=== PATIENT | male | born 2000 | race Caucasian/White ===

== ENCOUNTER 2021-10-06 13:17 | Emergency (ER) | payer BC ==
[~2021-10-06] VITALS: Ht 180.3 cm; Wt 68.2 kg
[2021-10-06 13:39] VITALS: TEMP 98.5
[2021-10-06 14:31] LABS: BASO % 0.1 % (0.0-2.0); EOS # 0.1 K/mm3 (0.0-0.7); EOS % 0.7 % (0.0-4.0); GRAN # 5.9 K/mm3 (1.4-6.5); GRAN % 76.5 % (42.2-75.2); HEMATOCRIT 48.9 % (42.0-52.0); HEMOGLOBIN 17.1 g/dl (13.5-18.0); LYMPH # 1.3 K/mm3 (1.2-3.4); LYMPH % 16.3 % (20.0-51.0); MEAN CELL VOLUME 89 fl (80.0-100.0); MEAN CORPUSCULAR HEMOGLOBIN 31 pg (27-31); MEAN CORPUSCULAR HGB CONC 35 g/dl (33.0-37.0); MEAN PLATELET VOLUME 10.2 fl (7.4-10.4); MONO # 0.5 K/mm3 (0.1-0.6); MONO % 6.1 % (1.7-9.3); PLATELET COUNT 189 K/mm3 (130-400); RED BLOOD COUNT 5.48 M/mm3 (4.20-5.60); REDCELL DISTRIBUTION WIDTH-CV 12.4 % (11.5-14.5)
[2021-10-06 14:51] LABS: ALBUMIN 4.9 gm/dL (3.5-5.0); BILIRUBIN,TOTAL 1.1 mg/dL (0.2-1.2); CALCIUM 9.9 mg/dL (8.4-10.2); CREATININE, serum 0.83 mg/dL (0.72-1.25); POTASSIUM 4.1 mmol/L (3.5-4.5); TOTAL PROTEIN 8.2 gm/dL (6.2-8.1)
[2021-10-06] MEDS ORDERED: PREDNISONE20 MG PO (15:07)
[2021-10-06 15:18] VITALS: BP 126/91; PULSE 71
== END 2021-10-06 15:20 | disposition home or self-care (01) ==
LOC: COL.ER 13:17
PROVIDERS: Physician Assistant
DX: J40 Bronchitis, not specified as acute or chronic (principal); Z87.891 Personal history of nicotine dependence; Z28.310 Unvaccinated for COVID-19

== ENCOUNTER 2021-11-02 21:53 | Emergency (ER) | payer BC ==
[~2021-11-02] VITALS: Ht 177.8 cm; Wt 68.2 kg
[~2021-11-02 21:53] MED LIST: PREDNISONE20 MG PO
[2021-11-02 21:58] VITALS: BP 133/89; TEMP 98.1
[2021-11-02] MEDS ORDERED: ATARAX 25MG25 MG/TAB PO (22:20)
[2021-11-02 22:30] VITALS: PULSE 92
== END 2021-11-02 22:34 | disposition home or self-care (01) ==
LOC: COL.ER 21:53
DX: F41.9 Anxiety disorder, unspecified (principal); Z28.310 Unvaccinated for COVID-19